=== PATIENT | female | born 1945 | race Caucasian/White ===

== ENCOUNTER 2016-09-10 08:52 | Day surgery (SDC) | payer MEDICARE, OTHER ==
[2016-09-10] VITALS (11 sets, daily range): BP systolic 101–190; BP diastolic 64–92; PULSE 62–71; RESP 11–16; O2SAT 94–100
[~2016-09-10] VITALS: Ht 162.6 cm; Wt 59.8 kg
[~2016-09-10 08:52] MED LIST: AMN100C PO; AMT25T PO; CARB1TAB14 PO; CARB1TAB9 PO; DOCU-41 PO; FLUD0.1T PO; Lactated Ringer's 1,000 ML IV SCH; PRAM0.252 PO
[2016-09-10] MEDS ORDERED: fentaNYL-PF 50 mCg/mL 2 mL Inj ONE (08:53)
[2016-09-10] MEDS ORDERED: Lactated Ringer's 1,000 ML IV ONE (09:20)
[2016-09-10 09:55] LABS: BASOPHILS % (AUTO) 0.4 % (0-3); EOSINOPHILS % (AUTO) 2.2 % (0-5); MONOCYTES % (AUTO) 9.4 % (4-12); Mean Corpuscular Hemoglobin 32.4 pg (27.0-35.0); Mean Corpuscular Volume 94.9 fL (81-100); NEUTROPHILS % (AUTO) 68.4 % (40-74); Platelet Count 146 bil/L (150-400)
[2016-09-10] MEDS ORDERED: Lactated Ringer's 1,000 ML IV SCH (10:51)
[2016-09-10] MEDS ORDERED: Lactated Ringer's 500 ML IV PRN (10:51)
--- NOTE | 2016-09-10 10:51 | PCM.HPANE ---
Patient Data Date of Service: Sep 10, 2016 Surgeon Admitting Provider: Attending Provider:Елена López MD Primary Care Physician:Caron Shetty MD Other Provider:Anette Aragon Anesthesia Reason for Visit Postmenopausal Bleeding Ht/WT & BMI Height (Feet): 5 Height (Inches): 4.00 Weight (Kilograms): 59.8 Body Mass Index 22.00 Allergies Coded Allergies: Bee Pollen (Verified Allergy, Unknown, 12/10/14) epinephrine (Verified Adverse Reaction, Severe, tachycardia with epi in the novacain at dentist, 12/10/14) Past Anesthesia History Anesthesia History: Denies:: Abnormal Airway, Anesthesia Reactions, Difficult Intubation, Fam Anesthesia Reaction, Malignant Hyperthermia Diabetes History Hx Diabetes?: No MRSA MRSA: No Medications Blood Thinner: Aspirin Hypertension Medication: No Home Meds Incl Beta Ike: No Reported Medications Docusate Sodium (Colace)100 Mg [id number] Mg PO BID PRN For Constipation Ref 0 09/08/16 Amantadine 100 Mg [id number] Mg PO DAILY 09/15/15 Carbidopa/Levodopa 25-100 mg 1 Each Tablet0.5 Each PO BID 12/10/14 Carbidopa/Levodopa/Enta 31.25-125-200 mg (Stalevo 125)1 Each Tablet1 Each PO QID 04/01/14 Pramipexole Dihydrochloride (Mirapex)0.25 Mg Tablet0.25 Mg PO QID 02/04/14 Fludrocortisone Acetate 0.1 Mg Tablet0.5 Tab PO TID Ref 0 02/04/14 Fludrocortisone Acetate 0.1 Mg Tablet1.5 Tab PO AM Ref 0 02/04/14 Amitriptyline 25 Mg Tab25 Mg PO HS Ref 0 02/04/14 Discontinued Reported Medications Tamoxifen Citrate 20 Mg [id number] Mg PO DAILY 09/15/15 Docusate Sodium (Dulcolax Stool Softener)100 Mg [id number] Mg PO BID PRN For Constipation 30 Days Ref 0 12/10/14 History History of ENT Problems?: Yes HEENT History: Positive for:: Cataracts (bilateral surgery) Sinus Problem TMJ (grinds teeth at night, occ nightguard) Denies:: Abnormal Airway Difficult Intubation Dysphagia Glaucoma Hearing Problem Hx of Heart Problems?: No Cardiovascular History: Denies:: AICD Abdominal Aortic Aneurism Atrial Fibrillation Cardiac Surgery Chest Pain Congestive Heart Failure Coronary Artery Disease Edema Heart Murmur Hypertension Irregular Heartbeat Pacemaker Peripheral Vascular Valvular Heart Disease (echo 2014- ef 65-70%) Hx of Respiratory Problem?: Yes Respiratory History: Positive for:: Pneumonia (two years ago had difficult time with pneumonia) Denies:: Asthma COPD Emphysema Oxygen Administration Tuberculosis Use of C-PAP Machine Hx Neurologic Problems?: Yes Neurological History: Positive for:: Dizziness (with low blood pressure) Parkinson's Disease (while on meds, no active sx- movement disorder apparent) Denies:: CVA Dementia Headaches Seizures TIA Other History/Comments History reviewed and approved Pt administration of Levodopa/carbidopa preoperatively in effort to maintain schedule relted to administration. Hx of GI Problems?: Yes Gastrointestinal History: Denies:: Cirrhosis Diverticulitis Gall Bladder Disease Gastroesphageal Reflux Gastrointestinal Bleeding Heartburn Hepatitis Hiatal Hernia Liver Disease Rectal Bleeding (hemorrhoids) Hx of Problems?: No Genitourinary History: Denies:: Kidney Stones Urinary Tract Infection Female Hx: Positive for:: Problems with Breasts? (bilateral breast ca-) Denies:: Currently (post menopausal) Skin History: Denies:: History Skin Disorders? Pressure Ulcers Hx Musculoskeletal Problems?: Yes Musculoskeletal History: Positive for:: Back Injury (Back pain (hx lumbar fx) , cervical stenosis without discreeet radiclar sx.) Osteoarthritis Denies:: Fibromyalgia Joint Replacement Myasthenia Gravis Hx of Psycho/Social Problems?: Yes Psycho Social History: Positive for:: Anxiety Hx Depression Hx Surgeries?: Yes (BILAR BREAST REDUCTIONS,LT BREAST LUMPECTOMY,BREAST BX'S,D& C) Hx Any Other Health Problems?: Yes Other History: Positive for:: Cancer (Bilateral breast, SCC) Thyroid Disease (past hx of nodule) Denies:: Endocrine Disease Hospitalization History Blood Transfusions: Positive for:: Accept Blood Products? Denies:: Blood Transfusions Hx Diabetes: No Hx Alcohol Use: YesAlcoholic Drinks Per Day: one drink dailyHx Substance Use: No Smoking Status: Former Smoker (D/C 1980) Have You Smoked inLast 12 mo: No Stop/Bang Treated for Sleep Apnea?: No Do You Have a CPAP Machine?: No P-Blood Pressure: treated: No B- Body Mass Index > 35 kg/m2: No A- Age over 50: Yes N- Neck Large Circumference: No G- Gender Male: No ANTONIA Risk Assessment: Low Risk, <3 Yes Risk Assessment Category Category 1A: Patient has history of documented sleep apnea, and HAS NOT received any narcotic, sedative or anesthesia administration during this stay. Category 1B: Patient has history of documented sleep apnea, and HAS received any narcotic , sedative or anesthesia administration during this stay Category 2: Patient has SUSPECTED Obstructive Sleep Apnea, and HAS received any narcotic , sedative or anesthesia administration during this stay. Category 3: Patient has SUSPECTED Obstructive Sleep Apnea and HAS NOT received narcotic, sedative or anesthesia administration during this stay. Category 4: Outpatient in Procedural Areas with known sleep apnea or who screen positive for High Risk via the STOP/BANG questionnaire. Exam Exam Vital Signs Vital Signs Date Time Temp Pulse Resp B/P Pulse Ox O2 Delivery O2 Flow Rate FiO2 09/10/16 09:21 36.5 70 190/92 99 Room Air General Appearance: Alert, Oriented X3, Cooperative, No Acute Distress HEENT/AIRWAY: MP 2, Neck Movement (Normal ROM in extension despite Hx of cervical stenosis. pt denies plane of motion causing radicular Sx.), Mouth Opening (Upper incisor caps; No loos teethPt) Lungs: Clear to Auscultation, Normal Air Movement Heart: Exam Unremarkable, Normal S1, Normal S2, No Murmurs/Rubs/Gallops Meds/Labs/Diagnostics Admission Meds Current Medications Lactated Ringer's (Lr) 1,000 ml @ ud STK-MED ONCE IV Last administered on 09/10t 09:20; Start 09/10/16 at 09:20; Stop 09/10/16 at 09:21; Status DC Labs Test 09/10/16 09:52 White Blood Count 5.5th/mm3 (3.8-10.1) Red Blood Count 3.92mil/mm3 (3.90-5.20) Hemoglobin 12.7g/dL (12.0-15.6) Hematocrit 37.2% (35.0-46.0) Mean Corpuscular Volume 94.9fL (81-100) Mean Corpuscular Hemoglobin 32.4pg (27.0-35.0) Mean Corpuscular Hemoglobin Concent 34.1% (32.0-37.0) Red Cell Distribution Width 13.6% (12.3-15.4) Platelet Count 146bil/L (150-400) Neutrophils (%) (Auto) 68.4% (40-74) Lymphocytes (%) (Auto) 19.6% (14-46) Monocytes (%) (Auto) 9.4% (4-12) Eosinophils (%) (Auto) 2.2% (0-5) Basophils (%) (Auto) 0.4% (0-3) Plan Impression Patient chart reviewed, patient interviewed and anesthestic plan with risks, benefits, and alternatives discussed, and informed consent obtained. NPO Status: confirmed before mn ASA Physical Status: ASA1 Plus Emergency Anesthetic Plan: GA Bene/Risks/Altern/Consents: Yes HP Complete Prior to Induction: Yes Newton Isbell DO Sep 10, 2016 10:51
[2016-09-10] MEDS ORDERED: fentaNYL-PF 50 mCg/mL 2 mL Inj IVPUSH PRN (10:55)
[2016-09-10] MEDS ORDERED: Atropine 0.4 mg/mL Inj IVPUSH PRN (10:55)
[2016-09-10] MEDS ORDERED: Dexamethasone 4 mg/mL Inj IVPUSH PRN (10:55)
[2016-09-10] MEDS ORDERED: Labetalol 5 mg/mL 4 mL Inj IV PRN (10:55)
[2016-09-10] MEDS ORDERED: EPHEDrine Sulfate 50 mg/mL Inj IVPUSH PRN (10:55)
[2016-09-10] MEDS ORDERED: Ondansetron 2 mg/mL 2 mL Inj IVPUSH PRN ×2 (10:55→12:35)
[2016-09-10] MEDS ORDERED: Phenylephrine 10,000 mCg/mL Inj IVPUSH PRN (10:55)
[2016-09-10] MEDS ORDERED: HYDROmorphone 1 mg/mL Inj IVPUSH PRN ×2 (10:55→12:35)
[2016-09-10] MEDS ORDERED: MetoCLOpramide 5 mg/mL 2 mL Inj IVPUSH PRN (12:35)
[2016-09-10] MEDS ORDERED: diphenhydrAMINE 25 mg Capsule PO PRN (12:35)
[2016-09-10] MEDS ORDERED: oxyCODONE-Acetamin 5-325 mg Tablet PO PRN (12:35)
[2016-09-10] MEDS ORDERED: Ketorolac 15 mg/mL Inj IVPUSH PRN (12:35)
--- NOTE | 2016-09-10 12:40 | PCM.DIGYN ---
Surgical Discharge Instruction Dates of Hospitalization Date of Hospital Admission Providers Admitting Physician: Primary Care Physician: Caron Shetty MD Attending Physician: Елена López MD Diagnosis at Time of Discharge Diagnosis at time of discharge Endometrial polyp Problems: Diet Discharge Diet: No restrictions Activity Discharge Activity-General: Try not to overdue, Be up and about, Balance rest and activity, Activity as pain allows, No driving while taking narcotic Dressing and Incisional Care Hygiene: May shower, NO bathtub, hot tub or whirlpool Additional Instructions Discharge Instructions You have had an uncomplicated hysteroscopy and removal of an endometrial polyp. The tissue will be sent to a pathologist for review. Please call with any signs or symptoms of infection, heavy bleeding filling more than a pad per hour , or any malodorous vaginal discharge. Follow Up Plan Follow-up appointment: Weeks (2) Call your provider for: Fever, Chills, Heavy vaginal bleeding, Increasing pain Елена López MD Sep 10, 2016 12:40
--- NOTE | 2016-09-10 12:46 | PCM.ANEP1 ---
Post Anesthesia Phase 1 PACU Phase 1 Assessment Date of Service: Sep 10, 2016 Vital Signs Vital Signs Date Time Temp Pulse Resp B/P Pulse Ox O2 Delivery O2 Flow Rate FiO2 09/10/16 12:40 62 11 113/76 100 LMA 8 09/10/16 12:35 63 12 110/69 99 LMA 8 09/10/16 12:33 36.5 64 11 101/64 100 LMA 8 09/10/16 09:21 36.5 70 190/92 99 Room Air Level of Alertness: Drowsy, not talking ENGL[place]'s with Equal Strength: Yes Pain: No Nausea or Vomiting: No Airway Device: LMA Oxygen Delivery: Simple Mask (6l) Lungs: Clear to Auscultation, Normal Air Movement Dermatome Level: Full Sensation Newton Isbell DO Sep 10, 2016 12:45
--- NOTE | 2016-09-10 13:42 | PCM.ANEP2 ---
Post Anesthesia Evaluation ASA/CMS Post Anesthesia Date of Service: Sep 10, 2016 VS in Patient's Normal Range?: Yes Resp Stable; Airway Patent?: Yes CV Function & Hydration Stable: Yes Mental Status Recovered?: Yes Pain control Satisfactory?: Yes N/V Control Satisfactory?: Yes Newton Isbell DO Sep 10, 2016 13:42
--- NOTE | 2016-09-10 13:52 | OP ---
[address] [address] OPERATIVE REPORT PATIENT: NAEEM EVANS : 1945 MR#: [id number] ADMIT: 09/10/2016 JOB ID: [id number] DATE OF SURGERY: 09/10/2016 SURGEON: Елена López MD PREOPERATIVE DIAGNOSIS(ES): Postmenopausal bleeding. POSTOPERATIVE DIAGNOSIS(ES): Postmenopausal bleeding with endometrial polyp identified. PROCEDURE: 1. Hysteroscopy. 2. MyoSure polypectomy. 3. Dilation and curettage. ANESTHESIA: General endotracheal anesthesia. ESTIMATED BLOOD LOSS: 5 cc. FLUID REPLACEMENT: 400 cc of crystalloid. URINE OUTPUT: None. She voided prior to the procedure. FINDINGS: Two endometrial polyps. Otherwise normal appearing endometrial cavity. COMPLICATIONS: None apparent. INDICATIONS: This is a 71-year-old female, who presented to our clinic for evaluation of postmenopausal bleeding after being referred by Dr. Givens, her oncologist. She had a history of bilateral breast cancer. Status post treatment with mastectomy, which was found to be ER, [place] positive. Because of this, she was started on tamoxifen therapy. For the last year, she has had intermittent postmenopausal bleeding. She did have a biopsy done approximately a year ago at an outside clinic which returned within normal limits. She continued to have bleeding and an endometrial ultrasound was completed which showed a thickened endometrial stripe at 12 mm with some internal vascular flow noted at the top of the fundus. Because of this, she was then referred to our clinic for further evaluation and management. I saw her in our clinic in [place] and initially did an endometrial biopsy which returned within normal limits. However, given her clinical history, I felt that she was at high risk for occult malignancy given the findings on ultrasound with internal vascular flow, history of breast cancer on tamoxifen therapy and her age. Because of this, I recommended she proceed with a hysteroscopy with dilation and curettage. PROCEDURE: The patient taken to the operating room. She was placed in dorsal lithotomy position. She was prepped and draped in the usual sterile fashion. Under general anesthesia, a bivalve speculum was placed in the vagina. Her cervix was then grasped with a tenaculum. It sounded to 8 cm. She was then serially dilated using Hegar dilators to allow a size 8 MyoSure operative hysteroscope. The hysteroscope was inserted without difficulty and her endometrial cavity was visualized and there was noted to be a large endometrial polyp arising from the right posterior mid corpus of the uterus. Using the MyoSure device, this was morcellated. Behind this initial polyp at the left cornua, there is noted to be a second endometrial polyp which was also removed with the MyoSure device. This did have a thicker stalk to it. Following this, the hysteroscope was removed and sharp curettage was completed with an endometrial curette and the specimens were sent to Pathology. The tenaculum was removed from the cervix and the tenaculum sites were noted to be hemostatic. The speculum was then removed from the vagina. The patient tolerated this procedure well. Recovered in PACU. All counts were correct at the completion the procedure.
--- NOTE | 2016-09-13 11:43 | PATH ---
SURGICAL PATHOLOGY Attending Physician:Елена López, CASE STATUS: Signed Out PATIENT NAME: NAEEM EVANS PID: [id number] : 1945 DATE COLLECTED:09/10/2016 21:00 SPECIMEN: 1: Endometrium, Curettage 2: Endometrium, Biopsy CLINICAL HISTORY: POSTMENOPAUSAL BLEED 1). ENDOMETRIAL CURETTING 2). ENDOMETRIAL POLYP FINAL DIAGNOSIS: 1.ENDOMETRIUM CURETTINGS: FRAGMENTS OF SQUAMOUS EPITHELIUM AND ENDOCERVICAL EPITHELIUM, NEGATIVE FOR ATYPIA. SMALL FRAGMENTS OF ENDOMETRIAL STROMA WITHOUT IDENTIFIABLE ENDOMETRIAL GLANDS. 2.SPECIMEN DESIGNATED ENDOMETRIAL POLYP: MULTIPLE FRAGMENTS OF BENIGN ENDOMETRIAL POLYP, NEGATIVE FOR ATYPIA. ICD10 CODE N84.0 GROSS DESCRIPTION: The specimen is received in two formalin filled containers labeled with the patient's name. 1). The specimen is sublabeled "endometrial curettings" and consists of a less than 0.25 cc aggregate of mucoid material and blood which is filtered and entirely submitted in cassette 1A. 2). The specimen is sublabeled "endometrial polyp" and consists of approximately a 1.0 cc aggregate of tissue, mucoid material and blood which is filtered and wrapped and entirely submitted in cassettes 2A. 09/10/2016 DAC MICRO DESCRIPTION: See diagnosis. ICD-9 CODES: CPT CODES: 1: 10691 2: 47221 Electronically Signed Out Ganesh Sanchez MD [facility] [address], [place] [address] Technical component performed at [facility], [facility] [address], [address]
== END 2016-09-10 23:59 | disposition home or self-care (01) ==
LOC: SAS 08:52
PROVIDERS: ATTEND Obstetrics & Gynecology
PROC: 0UDB8ZX Extraction of Endometrium, Via Natural or Artificial Opening Endoscopic, Diagnostic (ICD-10-PCS; 2016-09-10)
PROC: 0UB98ZX Excision of Uterus, Via Natural or Artificial Opening Endoscopic, Diagnostic (ICD-10-PCS; principal; 2016-09-10 10:45)
DX: N95.0 Postmenopausal bleeding (principal); N84.0 Polyp of corpus uteri; Z85.3 Personal history of malignant neoplasm of breast; Z90.13 Acquired absence of bilateral breasts and nipples; Z79.810 Long term (current) use of selective estrogen receptor modulators (SERMs); G20 Parkinson's disease
CPT/HCPCS: 36415; 58558; 85025; 88305; J2250; J3010; J7120